=== PATIENT | female | born 1985 | race American Indian/Alaskan Native ===

== ENCOUNTER 2017-04-13 09:04 | Day surgery (SDC) | payer BC ==
--- NOTE | 2017-04-13 10:30 | Anesthesia Day of Surgery ---
Anesthesia Day of Surgery - Day of Surgery Patient Examined: Yes Patient H&P Reviewed: Yes Patient is NPO: Yes
--- NOTE | 2017-04-13 10:30 | Anesthesia Consultation ---
Anesthesia Consult and Med Hx Date of service: 04/13/17 - Airway Anesthetic Teeth Evaluation: Good ROM Head & Neck: Adequate Mental/Hyoid Distance: Adequate Mallampati Class: Class II Intubation Access Assessment: Probably Good - Pulmonary Exam CTA: Yes - Cardiac Exam Cardiac Exam: RRR - Pre-Operative Health Status ASA Pre-Surgery Classification: ASA3 Proposed Anesthetic Plan: General - Pulmonary Hx Smoking: Yes (STOPPED 03/23/2017 (ONLY DID 2 PER DAY)) Hx Pneumonia: No Hx Sleep Apnea: (MACIEJ PRE SCREEN LOW RISK) - Cardiovascular System Hx Hypertension: Yes (OFF MEDS DUE TO RECENT LOW BP) Hx Cardia Arrhythmia: Yes (H/O SVT, MVP) - Central Nervous System Hx Seizures: Yes (TX WITH GABAPENTIN (OTHER MEDS MADE WORSE)-LAST SEIZURE 08/2016 ) Hx Psychiatric Problems: Yes - Hematic Hx Anemia: Yes - Other Systems Hx Cancer: No - Additional Comments Anesthesia Medical History Comments: Von willibrands disease. H/o blood transfusions.
[2017-04-13 11:00] LABS: Hematocrit 29.8 % (30.3-42.9)
[2017-04-13] MEDS ORDERED: ZOFRAN IV PRN (11:00)
[2017-04-13] MEDS ORDERED: PERCOCET 5/325 PO PRN (11:00)
[2017-04-13] MEDS ORDERED: VERSED IV NR (11:00)
[2017-04-13] MEDS ORDERED: LACTATED RINGERS 1,000 ML IV SCH (11:00)
[2017-04-13] MEDS: DILAUDID IV PRN ×3 (11:27→13:35)
[2017-04-13] MEDS ORDERED: DIPRIVAN 10 MG/ML IV ONE (12:14)
[2017-04-13] MEDS ORDERED: DILAUDID ONE (12:15)
[2017-04-13] MEDS ORDERED: XYLOCAINE MPF 2% ONE (12:15)
[2017-04-13] MEDS ORDERED: DECADRON ONE (12:42)
[2017-04-13] MEDS ORDERED: ZOFRAN ONE (12:42)
--- NOTE | 2017-04-13 14:00 | Post Anesthesia Evaluation ---
- Post Anesthesia Evaluation Patient Participated: Yes Airway Patent: Yes Stable Respiratory Function: Yes Temp > 96.8F: Yes Pain Manageable: Yes Adequeate Hydration: Yes Anesthesia Complications: No
--- NOTE | 2017-04-13 14:19 | Procedure Note ---
Date of procedure: 04/13/17 Pre-op diagnosis: open fracture left ankle status post external fixation Post-op diagnosis: same Procedure: Removal of external fixator left leg/ankle The patient was brought to the OR and placed on the OR table in supine position following induction and intubation with Mac anesthesia the patient's left lower extremity was prepped and draped in the usual sterile manner a timeout procedure was done to identify the patient and the correct operative site. The external fixator was removed using a combination of torque wrenches and bolt cutters. Postop dressings were applied the patient tolerated procedure Complications.
[2017-04-13] MEDS ORDERED: VERSED IV ONE (15:00)
[2017-04-13 16:55] VITALS: BP 108/60
== END 2017-04-13 15:53 | disposition home or self-care (01) ==
LOC: OR 09:04
PROVIDERS: ATTEND Orthopaedic Surgery
DX: Z47.2 Encounter for removal of internal fixation device (principal); I10 Essential (primary) hypertension; D68.0 Von Willebrand disease; G40.909 Epilepsy, unspecified, not intractable, without status epilepticus; F31.9 Bipolar disorder, unspecified; Z79.899 Other long term (current) drug therapy; Z88.0 Allergy status to penicillin; Z88.6 Allergy status to analgesic agent; Z87.891 Personal history of nicotine dependence; X58.XXXD Exposure to other specified factors, subsequent encounter; Z74.2 Need for assistance at home and no other household member able to render care
CPT/HCPCS: 20694; 36415; 85014; 85018; 86850; 86900; 86901; J1100; J1170; J2250; J2405; J2704; J7120

== ENCOUNTER 2017-05-25 11:58 | Emergency (ER) | payer BC, OTHER ==
[2017-05-25 13:06] VITALS: BP 121/82
[2017-05-25 14:59] LABS: HCG Qualitative,Urine Negative (Negative)
[2017-05-25 15:05] LABS: Bacteria,Urine 1+ /HPF (Negative); Bilirubin,Urine NEG (Negative); Blood,Urine NEG (Negative); Mucus,Urine FEW /HPF; Nitrite,Urine NEG (Negative); Protein,Urine <15 mg/dL mg/dL (Negative); Urobilinogen,Urine < 2.0 mg/dL (<2.0)
[2017-05-25 15:09] LABS: Color,Urine Yellow (Yellow)
[2017-05-25] MEDS ORDERED: ULTRAM PO ONE (18:24)
--- NOTE | 2017-05-25 18:33 | Emergency Department Report ---
ED Lower Extremity HPI - General Chief Complaint: Extremity Injury, Lower Stated Complaint: PAIN IN RIGHT ANKLE GEOVANNY IN HIP/YEAST Time Seen by Provider: 05/25/17 17:08 Source: patient Mode of arrival: Ambulatory Limitations: No Limitations - History of Present Illness Initial Comments: This is a 32-year-old female nontoxic, well nourished in appearance, no acute signs of distress presents to the ED with c/o of twisting her left ankle and fall. She was walking down some steps and twisted her ankle and fell on her left ankle. Patient stated she has a history of ORIF done by Dr. Suh on has a plate and screws placed. Patient stated she feels the screw is misplaced. Patient denies any numbness, drooling, fever, chills, nausea, vomiting, chest pain and short of breath. Patient states she spoke with Dr. Suh as he stated to her to go to emergency room for a follow-up x-ray. Patient denies any other trauma. Denies any chest pain, shortness of breath, fever, chills, nausea, vomiting, headache or stiff neck. She denies any head trauma. States allergies to penicillin and NSAIDs. MD Complaint: ankle injury -: This afternoon Injury: Ankle: Left Type of Injury: inversion Place: home Severity: mild Severity scale (0 -10): 8 Improves With: nothing Worsens With: nothing Context: fall Associated Symptoms: able to partially bear weight, ambulatory. denies: snap/ pop sensation, swelling, numbness, tingling, unable to bear weight - Related Data Home Medications Medication Instructions Recorded Confirmed Last Taken Haloperidol [Haldol] 2 mg PO BID 04/12/17 04/13/17 04/13/17 08:00 Oxycodone HCl [Oxycontin] 10 mg PO PRN PRN 04/12/17 04/13/17 04/12/17 21:00 Varenicline Tartrate [Chantix] 1 mg PO BID 04/12/17 04/13/17 04/12/17 21:00 buPROPion SR [Wellbutrin Sr] 150 mg PO QAM 04/12/17 04/13/17 04/13/17 08:00 chlordiazePOXIDE/CLIDINIUM [Librax] 205 cap PO DAILY 04/12/17 04/13/17 04/12/17 21:00 hydrOXYZINE PAMOATE [Hydroxyzine 25 mg PO BID 04/12/17 04/13/17 04/11/17 08:00 Pamoate] Previous Rx's Medication Instructions Recorded Last Taken Type ALPRAZolam [Xanax] 1 mg PO TID PRN #20 tablet 04/01/17 04/11/17 21:00 Rx Acetaminophen [Tylenol Extra 500 mg PO Q6H PRN #30 tablet 04/01/17 Unknown Rx Strength] Citalopram Hydrobromide [celeXA] 20 mg PO QDAY #30 tablet 04/01/17 04/13/17 08: 00 Rx Cyclobenzaprine HCl [Flexeril 5 MG 5 mg PO QPM #30 tablet 04/01/17 04/13/17 08: 00 Rx TAB] Docusate Sodium [Colace CAP] 100 mg PO BID #60 capsule 04/01/17 04/11/17 08:00 Rx Gabapentin [Neurontin] 300 mg PO TID #90 capsule 04/01/17 04/13/17 08:00 Rx Mirtazapine [Remeron] 30 mg PO QHS #30 tablet 04/01/17 04/11/17 08:00 Rx Multivitamin with Iron 1 tab PO QDAY #30 tablet 04/01/17 04/11/17 08:00 Rx [Multivitamins with Iron] Olanzapine [OLANZapine] 10 mg PO QHS #30 tablet 04/01/17 04/13/17 08:00 Rx traMADol [Ultram] 50 mg PO Q6HR PRN #12 tablet 05/25/17 Unknown Rx Allergies Allergy/AdvReac Type Severity Reaction Status Date / Time NSAIDS (Non-Steroidal AdvReac Bleeding Verified 05/25/17 13:02 Anti-Inflamma Penicillins AdvReac Swelling Verified 05/25/17 13:02 ED Review of Systems ROS: Stated complaint: PAIN IN RIGHT ANKLE GEOVANNY IN HIP/YEAST Other details as noted in HPI Constitutional: denies: chills, fever Eyes: denies: eye pain, eye discharge, vision change ENT: denies: ear pain, throat pain Respiratory: denies: cough, shortness of breath, wheezing Cardiovascular: denies: chest pain, palpitations Endocrine: no symptoms reported Gastrointestinal: denies: abdominal pain, nausea, diarrhea Genitourinary: denies: urgency, dysuria, discharge Musculoskeletal: denies: back pain, joint swelling, arthralgia Skin: denies: rash, lesions Neurological: denies: headache, weakness, paresthesias Psychiatric: denies: anxiety, depression Hematological/Lymphatic: denies: easy bleeding, easy bruising ED Past Medical Hx - Past Medical History Hx Hypertension: Yes (OFF MEDS DUE TO RECENT LOW BP) Hx Arthritis: Yes Hx Headaches / Migraines: Yes (MIGRAINES) Hx Seizures: Yes (TX WITH GABAPENTIN (OTHER MEDS MADE WORSE)-LAST SEIZURE 08/2016 ) Hx HIV: No Additional medical history: Von Willebrand's disease, SVT - Surgical History Additional Surgical History: left ankle, right thigh - Social History Smoking Status: Current Every Day Smoker - Medications Home Medications: Home Medications Medication Instructions Recorded Confirmed Last Taken Type ALPRAZolam [Xanax] 1 mg PO TID PRN #20 tablet 04/01/17 04/13/17 04/11/17 21:00 Rx Acetaminophen [Tylenol Extra 500 mg PO Q6H PRN #30 tablet 04/01/17 04/12/17 Unknown Rx Strength] Citalopram Hydrobromide [celeXA] 20 mg PO QDAY #30 tablet 04/01/17 04/13/17 08:00 Rx Cyclobenzaprine HCl [Flexeril 5 MG 5 mg PO QPM #30 tablet 04/01/17 04/13/17 08:00 Rx TAB] Docusate Sodium [Colace CAP] 100 mg PO BID #60 capsule 04/01/17 04/13/17 08:00 Rx Gabapentin [Neurontin] 300 mg PO TID #90 capsule 04/01/17 04/13/17 04/13/17 08: 00 Rx Mirtazapine [Remeron] 30 mg PO QHS #30 tablet 04/01/17 04/13/17 04/11/17 08:00 Rx Multivitamin with Iron 1 tab PO QDAY #30 tablet 04/01/17 04/13/17 04/11/17 08: 00 Rx [Multivitamins with Iron] Olanzapine [OLANZapine] 10 mg PO QHS #30 tablet 04/01/17 04/13/17 04/13/17 08: 00 Rx Haloperidol [Haldol] 2 mg PO BID 04/12/17 04/13/17 04/13/17 08:00 History Oxycodone HCl [Oxycontin] 10 mg PO PRN PRN 04/12/17 04/13/17 04/12/17 21:00 History Varenicline Tartrate [Chantix] 1 mg PO BID 04/12/17 04/13/17 04/12/17 21:00 History buPROPion SR [Wellbutrin Sr] 150 mg PO QAM 04/12/17 04/13/17 04/13/17 08:00 History chlordiazePOXIDE/CLIDINIUM [Librax] 205 cap PO DAILY 04/12/17 04/13/17 04/12/17 21:00 History hydrOXYZINE PAMOATE [Hydroxyzine 25 mg PO BID 04/12/17 04/13/17 04/11/17 08:00 History Pamoate] traMADol [Ultram] 50 mg PO Q6HR PRN #12 tablet 05/25/17 Unknown Rx ED Physical Exam - General Limitations: No Limitations General appearance: alert, in no apparent distress - Head Head exam: Present: atraumatic, normocephalic - Eye Eye exam: Present: normal appearance Pupils: Present: normal accommodation - ENT ENT exam: Present: normal exam, mucous membranes moist - Neck Neck exam: Present: normal inspection, full ROM. Absent: tenderness, meningismus, lymphadenopathy, thyromegaly - Respiratory Respiratory exam: Present: normal lung sounds bilaterally. Absent: respiratory distress, wheezes, rales, rhonchi, stridor, chest wall tenderness - Cardiovascular Cardiovascular Exam: Present: regular rate, normal rhythm, normal heart sounds. Absent: bradycardia, tachycardia, irregular rhythm, systolic murmur, diastolic murmur, rubs, gallop - GI/Abdominal GI/Abdominal exam: Present: soft, normal bowel sounds. Absent: distended, tenderness, guarding, rebound, rigid - Extremities Exam Extremities exam: Present: normal inspection, full ROM, tenderness, normal capillary refill. Absent: pedal edema, joint swelling, calf tenderness - Expanded Lower Extremity Exam Left Hip exam: Present: normal inspection, full ROM Upper Leg exam: Present: normal inspection, full ROM Knee exam: Present: normal inspection, full ROM Lower Leg exam: Present: normal inspection, full ROM Ankle exam: Present: normal inspection, full ROM, tenderness. Absent: swelling , abrasion, laceration, ecchymosis, deformity, crepidus, dislocation, erythema, anterior draw sign Foot/Toe exam: Present: normal inspection, full ROM Neuro vascular tendon exam: Present: no vascular compromise. Absent: pulse deficit, abnormal cap refill, motor deficit, sensory deficit, tendon deficit, extremity cold to touch, pallor, abnormal 2-point discrimination, decreased fine /light touch, foot drop, peroneal nerve deficit, significant pain with passive ROM of distal joint Gait: Positive: observed and limited by pain - Back Exam Back exam: Present: normal inspection, full ROM. Absent: tenderness, CVA tenderness (R), CVA tenderness (L), muscle spasm, paraspinal tenderness, vertebral tenderness, rash noted - Neurological Exam Neurological exam: Present: alert, oriented X3, CN II-XII intact, normal gait, reflexes normal - Psychiatric Psychiatric exam: Present: normal affect, normal mood - Skin Skin exam: Present: warm, dry, intact, normal color. Absent: rash ED Course Vital Signs 05/25/17 13:02 Temperature 97.6 F Pulse Rate 86 Respiratory 18 Rate Blood Pressure 121/82 O2 Sat by Pulse 100 Oximetry - Reevaluation(s) Reevaluation #1: 05/25/17 18:41 Patient is speaking in full sentences with no signs of distress noted. - Consultations Consultation #1: 05/25/17 18:42 Dr. Suh was consulted and stated he is aware of patient and xray findings and stated to discharge with f/u for possible repeat surgery. ED Lower Extremity MDM - Medical Decision Making This is a 32-year-old female that presents with left ankle sprain. X-ray has been obtained and the radiologist. Dr. Suh has been consulted about the patient as he stated he is aware and statedit needed just gave patient crutches and have her follow-up with him for possible resurgery. Patient received Ultram in the ED. Patient was instructed not to operate any machinery while taking Ultram due to drowsiness. Patient stated her will just the patient home. Patient discharged with crutches and educated by RN using. At time time of discharge, the patient does not seem toxic or ill in appearance. No acute signs of distress noted. Patient agrees to discharge treatment plan of care. No further questions noted by the patient. Critical care attestation.: If time is entered above; I have spent that time in minutes in the direct care of this critically ill patient, excluding procedure time. ED Disposition Clinical Impression: Left ankle sprain Qualifiers: Encounter type: initial encounter Involved ligament of ankle: unspecified ligament Qualified Code(s): S93.402A - Sprain of unspecified ligament of left ankle, initial encounter Disposition: TO HOME OR SELFCARE Is pt being admited?: No Does the pt Need Aspirin: No Condition: Stable Instructions: Ankle Sprain (ED), Crutch Instructions (ED), Tramadol (By mouth) Additional Instructions: Follow-up with a orthopedic doctor in 3-5 days or if symptoms worsen and continue return to emergency room as soon as possible. Prescriptions: traMADol [Ultram] 50 mg PO Q6HR PRN #12 tablet PRN Reason: Pain Referrals: JONATHAN ANGEL MD [Primary Care Provider] - 3-5 Days AZAR SUH MD [Staff Physician] - 3-5 Days [facility] [Outside] - 3-5 Days [facility] [Outside] - 3-5 Days Forms: Work/School Release Form(ED)
--- NOTE | 2017-05-25 20:21 | XRay Report ---
FINAL REPORT EXAM: XR ANKLE 3+V LT HISTORY: fall/LT ANKLE PAIN TECHNIQUE: AP, lateral, and oblique views of the left ankle PRIORS: None. FINDINGS: A plate and screw device is present in the distal fibula. There deformity of the distal fibula between the last 2 screws, best identified on the oblique view. This is presumed to represent healing fracture deformity. There is no evidence for acute fracture or dislocation. No soft tissue swelling or radiopaque foreign bodies are seen. The ankle mortise is intact. Bony mineralization is normal and joint spaces are maintained. IMPRESSION: No acute soft tissue or bony abnormality noted. Postsurgical changes in the distal fibula. The
== END 2017-05-25 19:33 | disposition home or self-care (01) ==
LOC: ED 11:58
DX: S93.402A Sprain of unspecified ligament of left ankle, initial encounter (principal); I10 Essential (primary) hypertension; M19.90 Unspecified osteoarthritis, unspecified site; G43.909 Migraine, unspecified, not intractable, without status migrainosus; F17.200 Nicotine dependence, unspecified, uncomplicated; Z88.0 Allergy status to penicillin; Z88.8 Allergy status to other drugs, medicaments and biological substances; X58.XXXA Exposure to other specified factors, initial encounter; Y93.89 Activity, other specified; Y92.89 Other specified places as the place of occurrence of the external cause; Y99.8 Other external cause status
CPT/HCPCS: 81001; 81025; 99284

== ENCOUNTER 2017-06-23 09:15 | Day surgery (SDC) | payer OTHER ==
[2017-06-23] MEDS ORDERED: SUBLIMAZE ONE (11:16)
[2017-06-23] MEDS ORDERED: DIPRIVAN 10 MG/ML IV ONE (11:16)
[2017-06-23] MEDS ORDERED: NEOSPORIN GU IR ONE (11:25)
[2017-06-23] MEDS: VERSED IV NR ×2 (11:25→11:50)
--- NOTE | 2017-06-23 11:29 | Anesthesia Consultation ---
Anesthesia Consult and Med Hx Date of service: 06/23/17 - Airway Anesthetic Teeth Evaluation: Good ROM Head & Neck: Adequate Mental/Hyoid Distance: Adequate Mallampati Class: Class II Intubation Access Assessment: Good - Pulmonary Exam CTA: Yes - Cardiac Exam Cardiac Exam: RRR - Pre-Operative Health Status ASA Pre-Surgery Classification: ASA2 Proposed Anesthetic Plan: General - Pulmonary Hx Smoking: Yes Hx Pneumonia: No Hx Sleep Apnea: (MACIEJ PRE SCREEN LOW RISK) - Cardiovascular System Hx Hypertension: Yes (OFF MEDS DUE TO RECENT LOW BP) Hx Cardia Arrhythmia: Yes (H/O SVT, MVP) - Central Nervous System Hx Seizures: Yes (TX WITH GABAPENTIN (OTHER MEDS MADE WORSE)-LAST SEIZURE 08/2016 ) Hx Psychiatric Problems: Yes (anxiety) - Hematic Hx Anemia: Yes - Other Systems Hx Cancer: No - Additional Comments Anesthesia Medical History Comments: Informed consent obtained
[2017-06-23] MEDS ORDERED: PERCOCET 5/325 PO PRN (11:30)
--- NOTE | 2017-06-23 11:30 | Anesthesia Day of Surgery ---
Anesthesia Day of Surgery - Day of Surgery Patient Examined: Yes Patient H&P Reviewed: Yes Patient is NPO: Yes Beta Blockers: Yes (within last 24 hr)
[2017-06-23 11:38] LABS: Hematocrit 36.4 % (30.3-42.9); Hemoglobin 11.8 gm/dl (10.1-14.3)
[2017-06-23] MEDS ORDERED: XYLOCAINE MPF 2% ONE (11:44)
[2017-06-23] MEDS ORDERED: NACL 0.9% IR ONE (11:50)
[2017-06-23] MEDS ORDERED: MARCAINE 0.5% INFILTRATI ONE ×2 (11:50→12:41)
[2017-06-23] MEDS ORDERED: LACTATED RINGERS 1,000 ML IV SCH (12:00)
[2017-06-23] MEDS ORDERED: VANCOMYCIN/NS 1 GM/250 ML 1 GM/250 ML BAG IV SCH (12:00)
[2017-06-23] MEDS ORDERED: NEO SYNEPHRINE/NS Syringe(OR USE) IV ONE (12:35)
[2017-06-23] MEDS ORDERED: ZOFRAN ONE (12:35)
[2017-06-23] MEDS: DILAUDID IV PRN ×2 (13:05→13:15)
--- NOTE | 2017-06-23 13:45 | Post Anesthesia Evaluation ---
- Post Anesthesia Evaluation Patient Participated: Yes Airway Patent: Yes Stable Respiratory Function: Yes Nausea/Vomiting: No Temp > 96.8F: Yes Pain Manageable: Yes Adequeate Hydration: Yes Anesthesia Complications: No
[2017-06-23 14:21] VITALS: BP 125/84
--- NOTE | 2017-07-25 15:11 | Procedure Note ---
Date of procedure: 06/23/17 Pre-op diagnosis: hardware irritation left ankle Post-op diagnosis: same Procedure: Removal hardware left ankle Procedure brought to the OR and given MAC anesthesia, the left ankle/leg prepped and draped in usual sterile fashion, next time-out procedure done to identified the patient and correct operative site. She was noted pre-op to have prominent screw head palpated along inferior portion incision line. A stab wound placed over the screw head exposed the top portion next hex screw freight delivery driver used to remove prominent screw w/o complications, wound irrigated and closed with 3-0 nylon sutures, post op dressing applied and she tolerated the procedure. Sent to PACU in stable condition.... Anesthesia: MAC Surgeon: AZAR LONG Estimated blood loss: minimal Pathology: none Condition: stable Disposition: PACU
== END 2017-06-23 14:27 | disposition home or self-care (01) ==
LOC: OR 09:15
PROVIDERS: ATTEND Orthopaedic Surgery
DX: T84.89XA Other specified complication of internal orthopedic prosthetic devices, implants and grafts, initial encounter (principal)
CPT/HCPCS: 20680; 36415; 81025; 85014; 85018; J1170; J2250; J2370; J2405; J2704; J3010; J3370; J7120